=== PATIENT | male | born 1945 | race Caucasian/White ===

== ENCOUNTER → 2018-10-29 | Outpatient (CLI) | payer MEDICARE ==
[2018-10-29] VITALS (8 sets, daily range): BP systolic 124–167; BP diastolic 86–101
[~2018-10-29] MED LIST: COZAAR 25 MG TA25 M1 PO; ELIQUIS5 MG PO; GLUCOSAMINE HC500 MG PO; KLOR-CON 1010 MEQ PO; LASIX 20 MG TAB20 MG PO; MAXZIDE-25 MG1 EACH PO; NORVASC5 MG PO; RYTHMOL SR225 MG PO; SAVAYSA60 MG PO; TOPROL XL25 MG PO
--- NOTE | 2018-10-29 15:05 | TEE ---
[place] [address] TRANSESOPHAGEAL ECHOCARDIOGRAM Name: SVETLANA NARAYANAN Room: [facility]#: [id number] Admission: 10/29/18 Attend Phys: Remigio Diaz Discharge: Date of : 45 Date of Service: 10/29/18 1504 Report #: [id number] THIS REPORT FOR: //name// APPROVED REPORT Study performed: 10/29/2018 12:32:11 EXAM: Transesophageal Echocardiogram Patient Location: Out-Patient Status: routine BSA: 2.35 HR: 96 bpm BP: 141/87 mmHg Rhythm: Atrial Fibrillation Other Information Study Quality: Good Indications Atrial Fibrillation pre-ablation Echo Enhancing Agent Indication: Rule out Shunt Agent(s) / Amount(s) Used: Agitated Saline 10 cc Procedure After obtaining informed consent, patient underwent transesophageal echo in the [employer]. Type of Sedation : Conscious Sedation Sedation was administered by Hui Lloyd RN. Sedation start time: 1236 Case end Time: 1254 Sedation was achieved intravenously with: Versed () Fentanyl () Transesophageal probe was inserted and advanced into esophagus without difficulty by Ish Rizzo MD, FACC. Echo enhancement indication: R/O Septal defect. Echo enhancement agent administered: Agitated Saline The LUIS was performed without complications. Throughout the procedure, the blood pressure, pulse oximetry, cardiac rhythm, and rate were monitored. The patient tolerated the procedure without adverse effects. Recovery from conscious sedation was uneventful and [place] [address] TRANSESOPHAGEAL ECHOCARDIOGRAM Name: ORACIOSVETLANA [id number] Admission: 10/29/18 Attend Phys: [facility] Dis[facility]: Date of : 45 Date of Service: 10/29/18 1504 Report #: [id number] Left Ventricle The left ventricle is normal size. There is normal LV segmental wall motion. There is normal left ventricular wall thickness. Left ventricular systolic function is normal. The left ventricular ejection fraction is within the normal range. LVEF is 60-65%. Right Ventricle The right ventricle is normal size. The right ventricular systolic function is normal. Atria No thrombus is visualized in the left atrium or appendage. Left atrium is dilated. Interatrial septum is intact without evidence of ASD or PFO. Right atrium is dilated. Aortic Valve The Aortic valve is sclerotic. Trace aortic regurgitation. Mild aortic stenosis Mitral Valve The mitral valve is normal in structure. Mild mitral regurgitation. No evidence of mitral valve stenosis. Tricuspid Valve The tricuspid valve is normal in structure. There is no tricuspid valve regurgitation noted. Pulmonic Valve The pulmonary valve is normal in structure. There is no pulmonic valvular regurgitation. Great Vessels The aortic root is normal in size. Pericardium There is no pericardial effusion. <Conclusion> LVEF is 60-65%. There is normal LV segmental wall motion. Right atrium is dilated. No thrombus is visualized in the left atrium or appendage. Left atrium is dilated. Interatrial septum is intact without evidence of ASD or PFO. [place] [address] TRANSESOPHAGEAL ECHOCARDIOGRAM Name: SVETLANA NARAYANAN Room: [facility]#: [id number] Admission: 10/29/18 Attend Phys: Remigio Diaz Discharge: Date of : 45 Date of Service: 10/29/18 1504 Report #: [id number] Trace aortic regurgitation. Mild mitral regurgitation. <ELECTRONICALLY SIGNED> By: Ish Rizzo MD, FACC 10/29/18 1504 1504 1504 Ish Rizzo MD, FAC /INF
== END | disposition home or self-care (01) ==
LOC: M.CL 11:00
DX: I48.91 Unspecified atrial fibrillation (principal); I08.0 Rheumatic disorders of both mitral and aortic valves; Z79.899 Other long term (current) drug therapy; Z79.01 Long term (current) use of anticoagulants; Z98.890 Other specified postprocedural states